=== PATIENT | male | born 1990 | race Caucasian/White ===

== ENCOUNTER 2021-09-15 14:29 | Emergency (ER) | payer OTHER ==
[~2021-09-15] VITALS: Ht 175.3 cm; Wt 81.0 kg
[2021-09-15 14:29] VITALS: BP 138/88
[2021-09-15] MEDS ORDERED: CYCLOBENZAPRINE 10 MG TABLET. PO ONE (15:30)
[2021-09-15] MEDS ORDERED: KETOROLAC 60 MG/2 ML VIAL. IM ONE (15:30)
--- NOTE | 2021-09-15 15:35 | PHYS DOC ---
Past History Past Surgical History: No Surgical History (GREG FITZPATRICK APRN) Alcohol Use: Occasionally (GREG FITZPATRICK APRN) General Adult EDM: Chief Complaint: LOWER BACK PAIN OR INJURY HPI: HPI: Patient is a 30-year-old male who presents with mid to lower back pain. 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 "I have had previous pain in the past". Patient denies any injury. Patient is able to ambulate. "Pain has actually improved since I got here". Pains increased with changing positions from sitting to standing. Patient does have a history of chronic back problems. Denies loss of bowel or urinary retention. Denies taking anything for pain prior to arrival. No saddle anesthesia. Denies all other medical history. (GREG FITZPATRICK APRN) Review of Systems: Review of Systems: ROS At least 10 ROS systems have been reviewed and are negative except as documented in the HPI. General: Negative except as outlined in HPI above. Skin: Negative except as outlined in HPI above. HEENT: Negative except as outlined in HPI above. Neck: Negative except as outlined in HPI above. Respiratory: Negative except as outlined in HPI above.. Cardiovascular: Negative except as outlined in HPI above. Abdomen: Negative except as outlined in HPI above. : Negative except as outlined in HPI above. Back/MSK: Negative except as outlined in HPI above. Neuro: Negative except as outlined in HPI above. Psych: Negative except as outlined in HPI above. (GREG FITZPATRICK APRN) Current Medications: Current Meds: Current Medications Medications (Trade) Dose Ordered Sig/Palomo Start Time Stop Time Status Last Admin Dose Admin Cyclobenzaprine HCl (Flexeril) 10 mg 1X ONCE 09/15/21 15:30 09/15/21 15:31 UNV Ketorolac Tromethamine (Toradol Im) 60 mg 1X ONCE 09/15/21 15:30 09/15/21 15:31 UNV (GREG FITZPATRICK APRN) Allergies: Allergies: Allergies Coded Allergies Type Severity Reaction Last Updated Verified No Known Drug Allergies 09/15/21 No (GREG FITZPATRICK APRN) Physical Exam: PE: Constitutional: Well developed, well nourished, no acute distress, non-toxic appearance. [] HENT: Normocephalic, atraumatic, bilateral external ears normal, oropharynx moist, no oral exudates, nose normal. [] Eyes: PERRLA, EOMI, conjunctiva normal, no discharge. [] Neck: Normal range of motion, no tenderness, supple, no stridor. [] Cardiovascular:Heart rate regular rhythm, no murmur [] Lungs & Thorax: Bilateral breath sounds clear to auscultation [] Abdomen: Bowel sounds normal, soft, no tenderness, no masses, no pulsatile masses. [] Skin: Warm, dry, no erythema, no rash. [] Back: Midlower, back lower tenderness, no CVA tenderness. [] Extremities: No tenderness, no cyanosis, no clubbing, ROM intact, no edema. [] Neurologic: Alert and oriented X 3, normal motor function, normal sensory function, no focal deficits noted. [] Psychologic: Affect normal, judgement normal, mood normal. [] (GREG FITZPATRICK APRN) Current Patient Data: Vital Signs: Vital Signs Date Time Temp Pulse Resp B/P (MAP) Pulse Ox O2 Delivery O2 Flow Rate FiO2 09/15/21 14:29 97.7 68 16 138/88 (105) 98 09/15/21 14:29 Room Air (GREG FITZPATRICK APRN) EKG: EKG: [] (GREG FITZPATRICK APRN) Radiology/Procedures: Radiology/Procedures: [] (GREG FITZPATRICK APRN) Heart Score: C/O Chest Pain: No Risk Factors: Risk Factors: DM, Current or recent (<one month) smoker, HTN, HLP, family history of CAD, obesity. Risk Scores: Score 0 - 3: 2.5% MACE over next 6 weeks - Discharge Home Score 4 - 6: 20.3% MACE over next 6 weeks - Admit for Clinical Observation Score 7 - 10: 72.7% MACE over next 6 weeks - Early Invasive Strategies (GREG FITZPATRICK APRN) Course & Med Decision Making: Course & Med Decision Making Pertinent Labs and Imaging studies reviewed. (See chart for details) [] 30-year-old male presents with mid to lower back pain. 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 Patient denies saddle anesthesia, loss of bowel or urinary retention. Patient has history of chronic back pain and has had similar pain in the past. Patient's pain was treated in the emergency room. Patient was sent home with prescription for Flexeril and instructions to continue taking ibuprofen for pain. Discussed return precautions in length. Patient voices understanding of discharge instructions. (GREG FITZPATRICK APRN) Jocelynon Disclaimer: Samira Disclaimer: This electronic medical record was generated, in whole or in part, using a voice recognition dictation system. (GREG FITZPATRICK APRN) Attending Co-Sign The patient was seen and interviewed as well as examined at the bedside. The c manning was reviewed. The case was discussed. Agree with the plan of care. (DENISE KENT DO) Departure Departure: Impression: Primary Impression: Back pain Qualified Codes: M54.6 - Pain in thoracic spine Disposition: HOME / SELF CARE / HOMELESS Condition: STABLE Referrals: CORAZON QUIROZ (PCP) Patient Instructions: Back Pain, Adult Additional Instructions: You were seen in the emergency room for back pain. You were given IM Toradol and Flexeril. Sending home a prescription for Flexeril. Please continue taking ibuprofen in between and using ice to the area that is causing pain. Return to emergency room if you have worsening symptoms or concerns, otherwise follow-up with your PCP in the next 24 to 48 hours for further management. EMERGENCY DEPARTMENT GENERAL DISCHARGE INSTRUCTIONS Thank you for coming to [facility] (ED) today and trusting us with you care. We trust that you had a positivie experience in our Emergency Department. If you wish to speak to the department management, you may call the director at [phone]. YOUR FOLLOW UP INSTRUCTIONS ARE FOLLOWS: 1. Do you have a private Doctor? If you do not have a private doctor, please ask for a resource list of physicians or clinics that may be able to assist you with follow up care. 2. The Emergency Physician has interpreted your x-rays. The X-Ray specialist will also review them. If there is a change in the findings, you will be notified in 48 hours when at all possible. 3. A lab test or culture has been done, your results will be reviewed and you will be notified if you need a change in treatment. ADDITIONAL INSTRUCTIONS AND INFORMATION: 1. Your care today has been supervised by a physician who is specially trained in emergency care. Many problems require more than one evaluation for a complete diagnosis and treatment. We recommend that you schedule your follow up appointment as recommended to ensure complete treatment of you illness or injury. If you are unable to obtain follow up care and continue to have a problem, or if your condition worsens, we recommend that you return to the ED. 2. We are not able to safely determine your condition over the phone nor are we able to give sound medical advice over the phone. For these safety reasons, if you call for medical advice we will ask you to come to the ED for further evaluation. 3. If you have any questions regarding these discharge instructions please call the ED at [phone]. SAFETY INFORMATION: In the interest of safety, wellness, and injury prevention; we encourage you to wear your sealbelt, if you smoke; quite smoking, and we encourage family to use a protective helmet for bicycling and other sporting events that present an increased risk for head injury. IF YOUR SYMPTOMS WORSEN OR NEW SYMPTOMS DEVELOP, OR YOU HAVE CONCERNS ABOUT YOUR CONDITION; OR IF YOUR CONDITION WORSENS WHILE YOU ARE WAITING FOR YOUR FOLLOW UP APPOINTMENT; EITHER CONTACT YOUR PRIMARY CARE DOCTOR, THE PHYSICIAN WHOSE NAME AND NUMBER YOU WERE GIVEN, OR RETURN TO THE ED IMMEDIATELY. Scripts Cyclobenzaprine Hcl (CYCLOBENZAPRINE HCL) 10 Mg Tablet 1 TAB PO TID PRN PRN for PAIN for 4 Days, #12 TAB Prov: GREG FITZPATRICK APRN 09/15/21 GREG FITZPATRICK APRN Sep 15, 2021 15:35 DENISE KENT DO Sep 19, 2021 10:07
[2021-09-15] MEDS ORDERED: CYCL10TA19 PO (15:37)
== END 2021-09-15 15:39 | disposition home or self-care (01) ==
LOC: ER 14:29
DX: M54.50 Low back pain, unspecified (principal)
CPT/HCPCS: 96372; 99283; J1885